=== PATIENT | female | born 1965 | race Hispanic/Latino ===

== ENCOUNTER 2020-06-18 18:54 | Emergency (ER) | payer BC, SELFPAY ==
--- NOTE | 2020-06-18 18:58 | ED.GENADULT ---
HPI - General Adult General Chief complaint: Chest Pain Stated complaint: chest pain Time Seen by Provider: 06/18/20 18:58 History of Present Illness HPI narrative: 55-year-old female patient presents to the [facility] with complaints midsternal chest pain starting yesterday. Patient states that she is also had a little bit of shortness of breath and a little bit of a cough. Patient reports a small headache to the back of the head yesterday. Only history is hypertension. Denies any other cardiac issues. Related Data Home Medications Medication Instructions Recorded Confirmed galcanezumab-gnlm [Emgality Pen] mg SUBCUT 03/20/19 lisinopril-hydrochlorothiazide tablet 03/20/19 Allergies Allergy/AdvReac Type Severity Reaction Status Date / Time No Known Allergies Allergy Verified 03/20/19 12:14 Review of Systems Review of Systems: Narrative: CONSTITUTIONAL: Denies fever, chills, or sweats. EYES: Denies visual changes, redness, or discharge. ENT: Denies rhinorrhea, congestion, sore throat, or otalgia. CARDIOVASCULAR: Positive midsternal chest pain, palpitations, or edema. RESPIRATORY: Positive mild cough, positive dyspnea. GASTROINTESTINAL: Denies abdominal pain, nausea, vomiting, or diarrhea. GENITOURINARY: Denies dysuria or hematuria. SKIN: Denies rash or itching. MUSCULOSKELETAL: Denies back pain, joint pain, or myalgia. NEUROLOGIC: Denies headache, numbness, or weakness. PSYCHIATRIC: Denies anxiety or depression. [facility] Past Medical History Medical History (Updated 06/18/20 @ 19:49 by BOLA Garzon) Hypertension Comments At the time of my signature I agree with nursing past medical history, surgical, social, and family history. There is no relevant family history pertinent to the presenting complaint. Exam Narrative: Exam Narrative: GENERAL: Well-appearing, well-nourished, and in no acute distress. HEAD: Normocephalic, atraumatic. EYES: PERRLA and EOMI. ENT: Nares clear, no rhinorrhea or epistaxis. Mucous membranes moist. NECK: Supple. No lymphadenopathy CHEST: Clear to auscultation. No respiratory distress. Patient able talk in clear complete sentences. No tripoding noted HEART: Regular rate and rhythm. No murmur heard. Normal peripheral pulses. ABDOMEN: Soft, nontender, nondistended, normal active bowel sounds. EXTREMITIES: Normal range of motion. No edema. SKIN: Warm, dry, no rash. NEURO: No focal deficits. Alert and oriented x3. Course Vital Signs Vital signs: Vital signs reviewed Transfer Transfered to: [facility] Transportation: ALS Transfer rationale: Midsternal chest pain Accepting physician: Dr. Hoover Transfer comments: Spoke with Dr. Kiko Garcia, ER and gave her report on patient that we are sending over with midsternal chest pain that started yesterday also reports some shortness of breath and a cough. Patient has history of hypertension but no other cardiac issues. EKG was performed which is concerning with some inverted T waves as well as a right bundle branch block that is noted. Patient was given 324 chewable aspirin IV was started and will be traveling to the ER by EMS. Dr. Hoover is aware the plan of care denies any other questions or concerns at this time. Medical Decision Making Differential Diagnosis Differential Diagnosis: Differential diagnosis: STEMI/ACS, AAA, PE, spontaneous pneumothorax, cardiac tamponade, esophageal rupture, pneumonia, GERD, muscle-skeletal pain or trauma, endocarditis, cocaine-related ischemia, pericarditis, URI, bronchitis. ECG Data EKG #1: ECG completion date: 06/18/20 ECG completion time: 19:39 Prior ECG tracings: not available for review Interpretation: Sinus rhythm. Indeterminate axis. Right bundle branch block, 120+ MS QRS duration, upright V1, 40+ MS S in I/aVL/V4/V5/V6. Left anterior fascicular block, QRS axis less than or equal to -45, QR in I, RS in II. Abnormal ECG. Unconfirmed report. Rate: 74 RI interv
--- NOTE | 2020-06-18 19:32 | ECG_ITS ---
Measurements Intervals [place] Rate: 74 P: 58 KS: 141 QRS: -51 QRSD: 168 T: 10 QT: 441 QTc: 491 Interpretive Statements SINUS RHYTHM RIGHT BUNDLE BRANCH BLOCK LEFT ANTERIOR FASCICULAR BLOCK BASELINE ARTIFACT- I, III, AVL, AVF, V4 ABNORMAL ECG Electronically Signed On 06-19-2020 7:07:09 CDT by Francisco Correia D.O.
[2020-06-18 19:34] VITALS: BP 129/73; PULSE 78; RESP 16; TEMP 36.4; O2SAT 100
[2020-06-18] MEDS: ASPIRIN 81 MG CHEWABLE TABLET 324 MG PO (19:43)
== END 2020-06-18 19:48 | disposition short-term general hospital (02) ==
PROVIDERS: Emergency Provider Nurse Practitioner Family
DX: R07.89 Other chest pain (principal); I10 Essential (primary) hypertension
CPT/HCPCS: 93005; 99215; A9270; G0463

== ENCOUNTER 2020-06-18 20:11 | Observation (INO) | payer BC, SELFPAY ==
--- NOTE | ~2020-06-18 | XR_ITS ---
EXAMINATION: XR chest 1V portable DATE: 06/18/2020 21:17 INDICATION: Chest pain. TECHNIQUE: A single frontal view of the chest was obtained. COMPARISON: Chest 2 views 04/15/2017 FINDINGS: The chest demonstrates clear lungs without pneumonia, pleural effusion, or pneumothorax. Th e heart size is normal. IMPRESSION: 1. No acute cardiopulmonary disease. Reviewed, dictated and finalized at location A.
--- NOTE | ~2020-06-18 | NM_ITS ---
EXAMINATION: NM evan stress w perfusion DATE: 06/19/2020 14:48 CDT INDICATION: Chest pain TECHNIQUE: Rest images were obtained following intravenous administration of 10.5 mCi Tc99m tetrofosm in (Myoview). The patient was infused intravenously with Lexiscan (regadenoson). Then, 30.3, mCi Tc99 m tetrofosmin (Myoview) was administered intravenously, and stress images were obtained. Data was rec onstructed into short axis and horizontal and vertical long axis SPECT images. Gated SPECT images wer e also obtained. COMPARISON: None. FINDINGS: There is no definite reversible or fixed perfusion abnormality to suggest ischemia or infar ction. There is no segmental wall motion abnormality. Left ventricular ejection fraction measures 6 1%. IMPRESSION: 1. No definite ischemia or infarct. 2. Normal left ventricular ejection fraction measuring 61%. Reviewed, dictated and finalized at location B.
[2020-06-18 20:16] VITALS: BP 138/69; PULSE 81; RESP 11; TEMP 36.7; O2SAT 100
[2020-06-18 20:32] VITALS: PULSE 73
--- NOTE | 2020-06-18 20:51 | ED.CHESTPAIN ---
HPI - Chest Pain General Chief Complaint: Chest Pain Stated Complaint: chest pressure Time Seen by Provider: 06/18/20 20:19 Source: patient, family and certified court interpreter Mode of arrival: EMS Limitations: no limitations History of Present Illness HPI narrative: 55-year-old female Only history is hypertension for which she takes lisinopril and hydrochlorothiazide Patient prefers that her daughter interpret versus using the [employer] which was offered She complains of a 2-day history of discomfort in her upper chest and neck which is exertional especially if she tries to do something like walking upstairs and which is relieved by rest She states that she has had numerous episodes and that they have lasted anywhere from 15 minutes to an hour Currently she is fully pain free There is mild shortness of breath associated with them but no nausea diaphoresis She does not have a cough fever or abdominal complaints Related Data Home Medications Medication Instructions Recorded Confirmed galcanezumab-gnlm [Emgality Pen] mg SUBCUT 03/20/19 lisinopril-hydrochlorothiazide tablet 03/20/19 Allergies Allergy/AdvReac Type Severity Reaction Status Date / Time No Known Allergies Allergy Verified 03/20/19 12:14 Review of Systems Review of Systems: All systems reviewed & are unremarkable except as noted in HPI and below Constitutional: Constitutional: Reports no additional constitutional complaints, Denies chills, Denies fever(s) and Denies headache(s) Eyes: Eyes: Reports no additional eye complaints and Denies change in vision ENT: Denies headache(s) and Denies sore throat Cardiovascular: Cardiovascular: Reports chest pain, Reports radiating jaw, neck or arm pain and Denies dyspnea Respiratory: Respiratory: Denies cough and Reports dyspnea Gastrointestinal: Gastrointestinal: Denies abdominal pain, Denies diarrhea and Denies vomiting Genitourinary: Genitourinary: Denies urinary frequency and Denies dysuria Musculoskeletal: Musculoskeletal: Denies deformity, Denies arthralgias, Denies joint swelling and Denies numbness Integumentary/Breasts: Skin/Breast: Denies rash and Denies wounds Neurologic: Denies headache(s), Denies focal weakness and Denies numbness Psychiatric: Psychiatric: Reports no additional psychiatric complaints Endocrine: Endocrine: Reports no additional endocrine complaints Hematologic/Lymphatic: Hematologic/Lymphatic: Reports no additional hematologic/lymphatic complaints Allergic/Immunologic: Allergic/Immunologic: Reports no additional allergic/immunologic complaints PMFSH Past Medical History Medical History Hypertension Exam Const: General: cooperative and no acute distress Orientation/consciousness: patient oriented x3 (alert) HENMT: Head: normal to inspection, normocephalic and atraumatic Ears: external ears normal General nose exam: no epistaxis Eyes: Conjunctivae: conjunctivae normal EOM: EOMs intact bilaterally Neck: Neck: normal visual inspection, supple and no JVD Resp: Effort & Inspection: not labored Auscultation: clear to auscultation bilaterally, no rales, no rhonchi, no wheezes and other (BS =) Cardio: Rate: regular rate Rhythm: regular rhythm Heart sounds: no murmurs GI: GI Palp: Yes Soft to palpation and No Tenderness to palpation present (GI) Skin: General skin exam: normal color and no rashes or lesions noted Neuro: General: patient oriented x3 (alert) and moves all extremities Speech: normal speech Extrem: General: normal to inspection and no pedal edema Psych: Affect: normal affect Course Course Emergency Course: Her surgery is definitely suspect enough to observe her Discussed with Dr. Gonzalez and he will take her as a chest pain patient and discussed with the house sup and they will overflow her to an appropriate unit Vital Signs Vital signs: Vital Signs Temperature 36.7 C 06/18/20 20:16 Pulse
--- NOTE | 2020-06-18 21:03 | ECG_ITS ---
Measurements Intervals [place] Rate: 75 P: 56 ID: 142 QRS: -38 QRSD: 166 T: -3 QT: 430 QTc: 481 Interpretive Statements SINUS RHYTHM VENTRICULAR PREMATURE COMPLEX RIGHT BUNDLE BRANCH BLOCK BASELINE ARTIFACT- I, II, III, AVR, AVL, AVF, V1-V2 ABNORMAL ECG Electronically Signed On 06-19-2020 7:08:03 CDT by Francisco Correia D.O.
[2020-06-18 21:11] VITALS: BP 130/67; PULSE 77; RESP 19; O2SAT 98
--- NOTE | 2020-06-18 21:13 | PC.NURSE ---
Per EDP Ruben, no Aspirin needed at this time. 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
[2020-06-18] MEDS: NITROGLYCERIN OINTMENT 1 INCH DOSE 0.5 INCH TRANSDERM (21:20)
[2020-06-18 21:28] LABS: Basophils Absolute Auto 0.1 K/mm3 (0.0-0.1); Basophils Percent Auto 0.9 % (0.2-1.2); Eosinophils Absolute Auto 0.4 K/mm3 (0-0.3); Eosinophils Percent Auto 5.7 % (0-4.4); Hematocrit 41.4 % (37.0-47.0); Hemoglobin 14.2 g/dL (12.0-15.0); Immature Granulocyte Absolute 0.01 K/mm3 (0.00-0.031); Immature Granulocyte Percent A 0.2 % (0-0.5); Lymphocytes Absolute Auto 1.78 K/mm3 (0.9-3.2); Mean Corpuscular HGB Conc 34.3 g/dl (32-36); Mean Corpuscular Hemoglobin 32.3 pg (26-34); Mean Corpuscular Volume 94.1 fl (80-100); Mean Platelet Volume 9.8 fl (7.4-10.4); Monocytes Absolute Auto 0.7 K/mm3 (0.1-0.6); Monocytes Percent Auto 10.6 % (2.6-8.5); Neutrophils Absolute Auto 3.5 K/mm3 (1.3-6.7); Neutrophils Percent Auto 54.6 % (45.5-73.1); Platelet Count Result 253 k/mm3 (150-375); Red Cell Distribution Width 12.4 % (11.5-14.5); White Blood Count 6.4 K/mm3 (4.5-10.0)
[2020-06-18 21:41] LABS: Alanine Aminotransferase 29 U/L (4-35); Albumin Level 4.3 g/dL (3.5-5.1); Alkaline Phosphatase 81 U/L (38-126); Anion Gap 5 mmol/L (8-16); Aspartate Amino Transferase 28 U/L (14-36); Bilirubin,Total 0.4 mg/dL (0.2-1.3); Blood Urea Nitrogen 24 mg/dL (7-17); Calcium 9.2 mg/dL (8.4-10.2); Carbon Dioxide 31 mmol/L (22-30); Chloride 103 mmol/L (98-107); Estimated CRCL calculation 89 ml/min; Estimated Glomerular Filt Rate > 60; Glucose 126 mg/dL (65-105); Potassium 4.1 mmol/L (3.4-5.0); Sodium 139 mmol/L (137-145)
[2020-06-18 21:53] LABS: Troponin I < 0.012 ng/mL (0.000-0.034)
[2020-06-18 23:34] VITALS: BP 104/61; PULSE 84; PULSE 88; RESP 15; RESP 17; O2SAT 99
[2020-06-18 23:45] VITALS: PULSE 85; RESP 19; O2SAT 99
[2020-06-19] VITALS (18 sets, daily range): BP systolic 96–116; BP diastolic 55–76; PULSE 62–76; RESP 11–23; TEMP 35.8–36.7; O2SAT 97–99; BMI 32.8
--- NOTE | 2020-06-19 | ECHO_ITS ---
Patient Info Name: Glo Cruz Age: 55 years : 1965 Gender: Female Ht: 65 in Wt: 197 lbs BSA: 2.06 m2 HR: 67 bpm BP: 115 / 61 mmHg Heart Rhythm: Sinus Rhythm Technical Quality: Good Exam Date: 06/19/2020 2:38 PM [facility] Room: ICU 10 Patient Status: Inpatient Admit Date: 06/18/2020 Staff Ordering Physician: Carlos Manuel Galindo MD Hand Box Folder: Mary Byrd RDCS Attending Provider: Gumaro Gonzalez MD Referring Physician: Mateo GARRIDO; Exam Type: CA echo doppler color flow Study Info Indications - CHEST PAIN RBBB Complete two-dimensional, color flow and Doppler transthoracic echocardiogram is performed. Summary 1. Complete two-dimensional, color flow and Doppler transthoracic echocardiogram is performed. 2. Left ventricular chamber dimension is mildly enlarged. 3. Left ventricular systolic function is normal, estimated at 60-65%. 4. There is mildly increased left ventricular wall thickness. 5. The left ventricular diastolic function is grade I diastolic dysfunction. 6. Left atrial chamber dimension is mildly enlarged. 7. There is mild mitral valve regurgitation. 8. The mitral valve has thickened leaflets. 9. There is mild tricuspid valve regurgitation. 10. There is mild pulmonic regurgitation. Left Ventricle Left ventricular chamber dimension is mildly enlarged. Left ventricular systolic function is normal, estimated at 60-65%. There is mildly increased left ventricular wall thickness. The left ventricular diastolic function is grade I diastolic dysfunction. Right Ventricle Right ventricular chamber dimension is normal. Right ventricular systolic function is normal. Left Atria Left atrial chamber dimension is mildly enlarged. Right Atria Right atrial chamber dimension is normal. Atrial Septum Intact interatrial septum visualized by color flow imaging. Aortic Valve The aortic valve is trileaflet. There is mild aortic valve sclerosis. There is no aortic valve stenosis. There is trace aortic valve regurgitation. Pulmonic Valve The pulmonic valve is normal. There is no pulmonic valve stenosis. There is mild pulmonic regurgitation. Mitral Valve The mitral valve has thickened leaflets. There is no mitral valve stenosis. There is mild mitral valve regurgitation. Tricuspid Valve The tricuspid valve leaflets are normal. There is no significant tricuspid valve stenosis. There is mild tricuspid valve regurgitation. No pulmonary hypertension, estimated pulmonary arterial systolic pressure is 32 mmHg. Pericardium/Pleural The pericardium appears normal. There is no pericardial effusion. Inferior Vena Cava Normal inferior vena cava with <50% collapse upon inspiration consistent with elevated right atrial pressure, 10 mmHg. Aorta The aortic root size at the sinus of Valsalva is normal. The prox ascending aorta size is normal. Left Ventricular Outflow Tract Name Value Normal LVOT 2D LVOT Diameter 2.0 cm LVOT Doppler LVOT Peak Gradient 4 mmHg LVOT Mean Gradient
--- NOTE | 2020-06-19 01:23 | PC.NURSE ---
Report received from TAYLOR Castillo in ED.
[2020-06-19] MEDS: LACTATED RINGERS 1,000 ML 50 ML IV CONT (01:56)
[2020-06-19 01:57] LABS: Troponin I < 0.012 ng/mL (0.000-0.034)
[2020-06-19 04:10] LABS: Troponin I < 0.012 ng/mL (0.000-0.034)
--- NOTE | 2020-06-19 04:35 | ADMGEN ---
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 Patient/family oriented to hospital policies and general routines including ID bracelet, bed and alarms, visiting hours, pain management, procedures, bathroom and other care routines, personal items, smoking policy, room service/diet, and visiting hours. Information on how to activate the Rapid Response Team has been discussed. Patient/Family are encouraged to report perceived risks to care and to ask questions if they do not understand what they are told or what they should do.
--- NOTE | 2020-06-19 04:36 | ECG_ITS ---
Measurements Intervals [place] Rate: 63 P: 38 AK: 173 QRS: -32 QRSD: 157 T: -11 QT: 442 QTc: 455 Interpretive Statements SINUS RHYTHM LEFT AXIS DEVIATION RIGHT BUNDLE BRANCH BLOCK BASELINE ARTIFACT- I, II, III, AVR, AVL, AVF, V1-V2 ABNORMAL ECG Electronically Signed On 06-19-2020 7:14:48 CDT by Francisco Correia D.O.
[2020-06-19] MEDS: ACETAMINOPHEN 325 MG TABLET 650 MG PO (06:52)
--- NOTE | 2020-06-19 07:03 | PC.NURSE ---
Complained of headache - Tylenol administered. Standby assistance to the bathroom. Tolerated activity without complaints.
[2020-06-19] MEDS: ASPIRIN 81 MG CHEWABLE TABLET PO (10:33)
[2020-06-19] MEDS: FAMOTIDINE 20 MG/2 ML VIAL IV PUSH (10:33)
--- NOTE | 2020-06-19 11:18 | PM.IMHP ---
H&P: HPI History of Present Illness Date/Time: 06/19/20 11:18 Chief Complaint: Chest pain Narrative: Date of service 06/19/2020 Chief complaint: Chest pain History: Patient is a 55-year-old Yoruba-speaking female he does speak some Botswanan but interpretation is predominately performed through her daughter. She presented to the hospital because of chest pain. She has been having 2 days history of intermittent chest discomfort after breathing in some peanut Dust at her work. She describes the pain as a tightness that would worsened if she would breathe in associated some shortness of breath. Whenever she would cough her symptoms would improve. Symptoms would occur with and without activity and last for about 5 minutes at a time. She denies any syncope or presyncope. No paroxysmal nocturnal dyspnea or orthopnea. No previous episode of chest pain. She does have some swelling at the end of the her day at work but this is not new or different. She does carry a diagnosis of hypertension but no other health problems. She has been having several episodes of this over the past couple of days and came to the hospital because of the symptoms and for further workup and evaluation. Her troponins are negative and her EKG shows no acute ST or T-wave abnormalities. Review of Systems Review of Systems: All systems reviewed & are unremarkable except as noted in HPI and below Constitutional: Constitutional: Denies weakness Eyes: Eyes: Denies blurry vision ENT: Reports Normal hearing present Cardiovascular: Cardiovascular: Reports chest pain Respiratory: Respiratory: Reports dyspnea on exertion Gastrointestinal: Gastrointestinal: Denies abdominal pain Genitourinary: Genitourinary: Denies flank pain Musculoskeletal: Musculoskeletal: Reports neck pain Integumentary/Breasts: Skin/Breast: Denies dry skin Neurologic: Denies headache(s) and Denies numbness Psychiatric: Psychiatric: Denies anxiety and Denies behavioral changes Endocrine: Endocrine: Denies excessive sweating Hematologic/Lymphatic: Hematologic/Lymphatic: Denies easy bleeding Allergic/Immunologic: Allergic/Immunologic: Denies GI upset with certain foods PMFSH Past Medical History Medical History Hypertension Family History Family History Mother Liver disease Social History Social History Smoking packs per day: 0 Smoking cigarettes per day: 0.0 Years smoked: 0 Smoking pack-years: 0.00 Smoking status: Never smoker Second hand tobacco smoke exposure: No Alcohol intake: never Substance use: never Substance use type: does not use Living arrangements: with family Gender identity (if verbalized by the patient): Female Spiritual care concerns: Yes (Hoahaoism) Meds Home Medications and Allergies Home Medications Medication Instructions Recorded Confirmed Type cetirizine [Zyrtec] 10 mg PO DAILY #30 tablet 03/20/19 06/19/20 Rx galcanezumab-gnlm [Emgality Pen] mg SUBCUT MONTHLY PRN 03/20/19 History lisinopril-hydrochlorothiazide 1 tablet PO DAILY 03/20/19 06/19/20 History celecoxib 200 mg PO DAILY 06/19/20 06/19/20 History fluticasone propionate [Flonase 2 spray NASAL PRN PRN 06/19/20 06/19/20 History Allergy Relief] sumatriptan succinate 1 mg PO PRN PRN 06/19/20 06/19/20 History Allergies Allergy/AdvReac Type Severity Reaction Status Date / Time No Known Allergies Allergy Verified 03/20/19 12:14 Vital Signs Vital Signs - 24 hr 06/18/20 20:16 06/18/20 20:32 06/18/20 21:11 Temperature 36.7 C Pulse Rate 81 73 77 Respiratory Rate 11 L 19 Blood Pressure 138/69 130/67 Pulse Oximetry 100 98 06/18/20 23:34 06/18/20 23:45 06/19/20 00:00 Temperature Pulse Rate 84 85 71 Respiratory Rate 17 19 13 Blood Pressure 104/61 Pulse Oximetry 99 99
--- NOTE | 2020-06-19 11:25 | EST_ITS ---
Patient Info Name: Glo Cruz Age: 55 years : 1965 Gender: Female Exam Date: 06/19/2020 1:29 PM Exam Location: [facility] Stress Patient Status: Inpatient Admit Date: 06/18/2020 Staff Ordering Physician: Carlos Manuel Galindo MD Attending Provider: Gumaro Gonzalez MD Exercise Technologist: Radha Cueva RDCS Exercise Physician: Carlos Manuel Galindo MD Exam Type: CA stress evan w NM Study Info Indications R07.9 - Chest pain, unspecified A regadenoson stress test was performed. Summary 1. Please correlate with nuclear medicine images, reported separately. 2. No abnormal ST-T wave changes with lexiscan. Max Pred HR: 166 bpm Target HR: 141 bpm Target HR Summary: Hemodynamic response to exercise was normal BP Response: Normal blood pressure response Termination Reason: Completed protocol Cardiac Symptoms: None Resting ECG Normal sinus rhythm. Right bundle branch block. Stress ECG No abnormal ST/T wave changes with exercise. Arrhythmias Frequent PVCs. Report Signatures
[2020-06-19] MEDS: CELECOXIB 200 MG CAPSULE PO (11:51)
[2020-06-19] MEDS: hydroCHLOROthiazide 12.5 MG CAPSULE PO (11:51)
[2020-06-19] MEDS: lisinopriL 10 MG TABLET PO (11:51)
[2020-06-19] MEDS: LORATADINE 10 MG TABLET PO (11:51)
[2020-06-19 12:44] LABS: Cholesterol 158 mg/dL (0-200); HDL Direct 43 mg/dL; Triglycerides 118 mg/dL (<150)
[2020-06-19 12:56] LABS: LDL Cholesterol Direct 93 mg/dL
--- NOTE | 2020-06-19 13:03 | PC.NURSE ---
1255-PATIENT TAKEN TO STRESS LAB PER WHEELCHAIR.
== END 2020-06-19 17:10 | disposition home or self-care (01) ==
LOC: ANHED 22:57 → ANHICU 06-19 06:13
PROVIDERS: Admitting Provider Internal Medicine Cardiovascular Disease; Emergency Provider Emergency Medicine; PCP Internal Medicine; Visit Provider Internal Medicine Cardiovascular Disease
DX: R07.89 Other chest pain (principal); I10 Essential (primary) hypertension; I45.10 Unspecified right bundle-branch block; R06.02 Shortness of breath
CPT/HCPCS: 36415; 71045; 78452; 80053; 80061; 84484; 85025; 93005; 93017; 93306; 96361; 96374; 99285; A9270; A9502; G0378; J2785; J7120

== ENCOUNTER 2021-05-25 17:50 | Emergency (ER) | payer BC, SELFPAY ==
--- NOTE | 2021-05-25 17:57 | ED.ABDPAIN ---
HPI - Abdominal Pain General Chief Complaint: Nausea/Vomiting/Diarrhea Stated Complaint: Abdominal Pain Time Seen by Provider: 05/25/21 17:58 Source: patient, RN notes reviewed and old records reviewed Mode of arrival: ambulatory Limitations: no limitations and language barrier (Croatian, manager mental health offered, wanted to use daughter who is at bedside) History of Present Illness HPI narrative: 56 yo female presents to the [facility] with complaints of body aches, nausea for 2 days. States she has been drinking tea for her upset stomach and gurgling stomach reports generalized discomfort. Denies fevers, chest pain. Last bowel movement this morning. Denies any flank pain, no CVA tenderness. No urinary symptoms MD elicited complaint: abdominal pain Related Data Home Medications Medication Instructions Recorded Confirmed candesartan-hydrochlorothiazid 1 tablet PO DAILY 05/25/21 05/25/21 Allergies Allergy/AdvReac Type Severity Reaction Status Date / Time No Known Allergies Allergy Verified 05/25/21 18:07 Review of Systems Review of Systems: All systems reviewed & are unremarkable except as noted in HPI and below Constitutional: Constitutional: Reports no additional constitutional complaints, Denies body ache(s), Denies chills and Denies fever(s) Eyes: Eyes: Reports no additional eye complaints ENT: Reports system reviewed and no additional complaints, except as documented Cardiovascular: Cardiovascular: Reports no additional cardiovascular complaints, Denies chest pain and Denies dyspnea Respiratory: Respiratory: Reports no additional respiratory complaints, Denies cough and Denies dyspnea Gastrointestinal: Gastrointestinal: Reports as per HPI, Reports abdominal pain, Denies constipation, Denies diarrhea, Reports nausea and Reports vomiting (x1) Genitourinary: Genitourinary: Reports no additional female genitourinary complaints Musculoskeletal: Musculoskeletal: Reports no additional musculoskeletal complaints Integumentary/Breasts: Skin/Breast: Reports system reviewed and no additional complaints, except as docu Neurologic: Reports system reviewed and no additional complaints, except as documented Psychiatric: Psychiatric: Reports no additional psychiatric complaints Allergic/Immunologic: Allergic/Immunologic: Reports no additional allergic/immunologic complaints PMFSH Past Medical History Medical History (Updated 05/25/21 @ 18:58 by Erika Delgado APRN) Hypertension Surgical History Surgical History (Updated 05/25/21 @ 18:58 by Erika Delgado APRN) H/O umbilical hernia repair Family History Family History Mother Liver disease Social History Social History Smoking packs per day: 0 Smoking cigarettes per day: 0.0 Years smoked: 0 Smoking pack-years: 0.00 Smoking status: Never smoker Second hand tobacco smoke exposure: No Alcohol intake: never Substance use: never Substance use type: does not use Gender identity (if verbalized by the patient): Female Spiritual care concerns: Yes (Religious) Comments At the time of my signature, I reviewed and agree with the nursing past medical, surgical, social, and family history. There is no relevant family history pertinent to the patient complaint. Exam Const: General: cooperative, healthy appearing, comfortable, no acute distress, well developed and alert Nutritional Appearance: well nourished and obese Orientation/consciousness: patient oriented x3 Limitations: no limitations HENMT: Head: normal to inspection Ears: external ears normal Eyes: Pupils: Equal, round and reactive pupils present Neck: Neck: normal visual inspection, no lymphadenopathy and no meningeal signs Chest: Chest palpation & inspection: normal inspection of the chest Resp: Effort & Inspection: normal respiratory effort, able to speak in comple
[2021-05-25 17:59] VITALS: BP 128/81; PULSE 90; RESP 16; TEMP 37.2; O2SAT 99
== END 2021-05-25 18:15 | disposition home or self-care (01) ==
PROVIDERS: Emergency Provider Nurse Practitioner; PCP Internal Medicine
DX: K52.9 Noninfective gastroenteritis and colitis, unspecified (principal); I10 Essential (primary) hypertension
CPT/HCPCS: 99213; G0463